=== PATIENT | female | born 1980 | race Caucasian/White ===

== ENCOUNTER → 2020-01-28 13:43 | Outpatient (CLI) | payer OTHER, SELFPAY ==
--- NOTE | ~2020-01-28 | MM_ITS ---
EXAMINATION: MM screening abdullahi BI w rafia HISTORY: Screening mammogram TECHNIQUE: Craniocaudal and mediolateral oblique 3-D tomosynthesis images were obtained and synthetic 2-D images were generated. CAD analysis was submitted and interpreted. COMPARISON: Comparison to multiple prior studies sequentially, with oldest reviewed study dated 07/18. BREAST PARENCHYMAL COMPOSITION: There are scattered areas of fibroglandular density. FINDINGS: There are developing asymmetries bilaterally in the outer aspect of both breasts. There are no suspicious calcifications. IMPRESSION: 1. Developing bilateral breast asymmetries. 2. Additional mammographic views and possible breast ultrasound are recommended. BI-RADS Category 0: Incomplete: Needs additional imaging evaluation. Reviewed, dictated and finalized at location A. OR DEPARTMENT SUPERVISOR IMPRESSION: 1. Developing bilateral breast asymmetries. 2. Additional mammographic views and possible breast ultrasound are recommended . BI-RADS Category 0: Incomplete: Needs additional imaging evaluation.
== END ==
PROVIDERS: Visit Provider Student in an Organized Health Care Education/Training Program
DX: Z12.31 Encounter for screening mammogram for malignant neoplasm of breast (principal); R92.8 Other abnormal and inconclusive findings on diagnostic imaging of breast
CPT/HCPCS: 77063; 77067

== ENCOUNTER 2020-02-14 09:06 | Outpatient (CLI) | payer OTHER, SELFPAY ==
--- NOTE | ~2020-02-14 | MMUS_ITS ---
EXAMINATION: MM diagnostic mammo BI, US breast BI limited HISTORY: Follow-up bilateral breast asymmetries TECHNIQUE: Additional 3-D tomosynthesis images of the breasts were performed and synthetic 2-D images were generated. CAD analysis was submitted and interpreted. High resolution bilateral breast ultraso und was performed. COMPARISON: 07/18/2017 FINDINGS: MAMMOGRAPHIC FINDINGS: The breasts are heterogenously dense, which may obscure small masses. There is no mammographic eviden ce for malignancy in the left breast. There is a microlobulated mass in the upper outer quadrant of t he right breast, middle third with poorly defined margins. ULTRASOUND: Bilateral breast ultrasound: There are multiple simple and complicated cysts of both breasts. In the right breast at 10:00, 5 cm f rom the nipple there is an oval circumscribed hypoechoic mass with central echogenicity measuring 12 x 5 x 11 mm. No internal vascularity or significant posterior features. IMPRESSION: 1. Irregular shaped mass upper outer quadrant of the right breast measuring 12 mm maximum dimension, likely corresponding to the mammographic finding. This is likely a benign intramammary lymph node. 2. Recommend 6 month follow-up diagnostic right mammogram and ultrasound BI-RADS category 3, probably benign findings. Reviewed, dictated and finalized at location A. IMPRESSION: 1. Irregular shaped mass upper outer quadrant of the right breast measuring 12 mm maximum dimension, likely corresponding to the mammographic finding. This is likely a benign intramammary lymph node. 2. Recommend 6 month follow-up diagnostic right mammogram and ultrasound BI-RADS category 3, probably benign findings.
== END 2020-02-14 09:07 ==
PROVIDERS: Visit Provider Obstetrics & Gynecology
DX: R92.8 Other abnormal and inconclusive findings on diagnostic imaging of breast (principal)
CPT/HCPCS: 76642; 77066

== ENCOUNTER 2021-02-16 08:13 | Emergency (ER) | payer OTHER, SELFPAY ==
--- NOTE | 2021-02-16 08:21 | ED.UPPEXIN ---
HPI - Extremity Injury (Upper) General Chief Complaint: Extremity Injury, Upper Stated Complaint: right thumb injury Time Seen by Provider: 02/16/21 08:21 Source: patient and RN notes reviewed History of Present Illness HPI narrative: Patient is a 40-year-old female with right thumb injury. 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 Patient states that about 2 and half weeks ago her index finger and right time were numb on the tips and therefore she was unsure that she was hitting the right thumb. Patient states that her index finger is now fully resolved of the numbness however she does still have some numbness at the tip of the right thumb. Patient is right-hand dominant. No other acute complaints. No acute distress noted. Patient aware of the plan of care. Some parts of this dictation were generated by voice recognition software and may contain typographical and/or grammatical inaccuracies. Related Data Home Medications Medication Instructions Recorded Confirmed fluticasone propionate 2 spray INTRANASAL DAILY 02/16/21 02/16/21 norethindrone-e.estradiol-iron 1 tablet PO DAILY 02/16/21 02/16/21 [Blisovi 24 Fe] Allergies Allergy/AdvReac Type Severity Reaction Status Date / Time amoxicillin Allergy Rash Verified 02/16/21 08:34 erythromycin base Allergy Rash Verified 02/16/21 08:34 Review of Systems Review of Systems: Narrative: CONSTITUTIONAL: Denies fever, chills, or sweats. EYES: Denies visual changes, redness, or discharge. ENT: Denies rhinorrhea, congestion, sore throat, or otalgia. CARDIOVASCULAR: Denies chest pain, palpitations, or edema. RESPIRATORY: Denies cough or dyspnea. GASTROINTESTINAL: Denies abdominal pain, nausea, vomiting, or diarrhea. GENITOURINARY: Denies dysuria or hematuria. SKIN: Denies rash or itching. MUSCULOSKELETAL: Reports of right thumb injury NEUROLOGIC: Denies headache, numbness, or weakness. All other systems reviewed are negative, except as documented in HPI. PMFSH Comments At the time of my signature, I reviewed and agree with the nursing past medical, surgical, social, and family history. There is no relevant family history pertinent to the patient complaint. Exam Narrative: Exam Narrative: GENERAL: This is a well-nourished, well-developed patient, in no apparent distress. HEAD: normocephalic, atraumatic. EYES: PERRL. Sclera clear/white. Vision is grossly intact. EARS: External ears normal NOSE: External nose normal with no obvious nasal discharge, nares without redness, no rhinorrhea. THROAT: Mucous membranes moist NECK: Neck supple SKIN: See extremities. Warm, intact with no suspicious lesions or rash, good texture and turgor. NEURO: awake, alert, and oriented to person, place and time. There were no obvious focal neurologic abnormalities. EXTREMITIES: Very mild ecchymosis and 1 x 1 cm irregular blood blister noted to the ulnar aspect of the right thumb with mild tenderness. Positive strong right radial pulse with capillary refill less than 2 seconds. No obvious deformity of right upper extremity. Range of motion within normal limits. Course Vital Signs Vital signs: Vital Signs Temperature 98.2 F 02/16/21 08:27 Pulse Rate 98 02/16/21 08:27 Respiratory Rate 14 02/16/21 08:27 Blood Pressure 167/97 H 02/16/21 08:27 Pulse Oximetry 100 02/16/21 08:27 Temperature 98.2 F 02/16/21 08:27 Pulse Rate 98 02/16/21 08:27 Respiratory Rate 14 02/16/21 08:27 Blood Pressure 167/97 H 02/16/21 08:27 Pulse Oximetry 100 02/16/21 08:27 Reviewed-patient is informed that they may have pre-hypertension or hypertension based on a blood pressure reading in the department. I recommend the patient call the primary care provider listed on their discharge instructions or a physician of their choice this week to arrange follow-up for further evaluation of possible pre-hypertension or hypertension. Procedures O
[2021-02-16 08:27] VITALS: BP 167/97; PULSE 98; RESP 14; TEMP 36.8; O2SAT 100
== END 2021-02-16 08:47 | disposition home or self-care (01) ==
PROVIDERS: Emergency Provider Nurse Practitioner Family
DX: S60.321A Blister (nonthermal) of right thumb, initial encounter (principal); X58.XXXA Exposure to other specified factors, initial encounter
CPT/HCPCS: 29130; 99212; G0463

== ENCOUNTER → 2021-02-19 13:11 | Outpatient (CLI) | payer OTHER, SELFPAY ==
--- NOTE | ~2021-02-19 | MMUS_ITS ---
EXAMINATION: MM diagnostic abdullahi BI w rafia, US breast RT limited HISTORY: Follow-up for probably benign right breast mass TECHNIQUE: Craniocaudal, mediolateral, and mediolateral oblique 3-D tomosynthesis images of the breas ts were performed and synthetic 2-D images were generated. CAD analysis was submitted and interpreted . High resolution limited right breast ultrasound was performed. COMPARISON: 02/14/2020, 01/28/2020, 02/04/2018, 07/18/2017 BREAST PARENCHYMAL COMPOSITION: The breasts are heterogeneously dense, which may obscure small masses . FINDINGS: MAMMOGRAPHIC FINDINGS: Right breast: There is a stable 8mm by 5 mm oval, obscured, equal density mass in the middle third of the outer breast at the 9:00 location 5 cm from the nipple. There has been no suspicious change. No suspicious calcification or architectural distortion are identified. Left breast: There is no evidence of suspicious mass, calcification, or architectural distortion to suggest malignancy. There has been no suspicious interval change. ULTRASOUND: There is a stable 11 mm x 4 mm oval, circumscribed, parallel, hypoechoic mass with no posterior featu res or internal vascularity at the 10:00 location 4 cm from the nipple. The mass has not significantl y changed since the 2018 comparison. Multiple additional cysts are noted in the upper outer quadrant of the breast. IMPRESSION: 1. No mammographic or sonographic evidence of malignancy. 2. Recommend routine screening mammography in one year. BI-RADS Category 2: Benign finding(s). Reviewed, dictated and finalized at location A. IMPRESSION: 1. No mammographic or sonographic evidence of malignancy. 2. Recommend routine screening mammography in one year. BI-RADS Category 2: Benign finding(s).
== END ==
PROVIDERS: Visit Provider Student in an Organized Health Care Education/Training Program
DX: Z12.31 Encounter for screening mammogram for malignant neoplasm of breast (principal); R92.8 Other abnormal and inconclusive findings on diagnostic imaging of breast
CPT/HCPCS: 76642; 77062; 77066; G0279

== ENCOUNTER → 2022-04-25 16:10 | Outpatient (CLI) | payer BC, SELFPAY ==
--- NOTE | ~2022-04-25 | MM_ITS ---
EXAMINATION: MM screening abdullahi BI w rafia HISTORY: Screening mammogram TECHNIQUE: Craniocaudal and mediolateral oblique 3-D tomosynthesis images were obtained and synthetic 2-D images were generated. Bilateral rotated lateral CC views. CAD analysis was submitted and interp reted. COMPARISON: 02/19/2021 diagnostic bilateral mammogram and limited right breast ultrasound examination 02/14/2020 bilateral diagnostic mammography and bilateral Limited breast ultrasound 01/28/2020 bilateral screening mammogram BREAST PARENCHYMAL COMPOSITION: The breasts are heterogeneously dense, which may obscure small masses . FINDINGS: There is no evidence of suspicious mass, calcification, or architectural distortion to sugg est malignancy in either breast. There has been no suspicious interval change. IMPRESSION: 1. No mammographic evidence of malignancy. 2. Recommend routine screening mammography in one year. BI-RADS Category 1: Negative Reviewed, dictated and finalized at location A.
== END ==
PROVIDERS: PCP Internal Medicine; Visit Provider Student in an Organized Health Care Education/Training Program
DX: Z12.31 Encounter for screening mammogram for malignant neoplasm of breast (principal)
CPT/HCPCS: 77063; 77067

== ENCOUNTER → 2023-08-19 16:02 | Outpatient (CLI) | payer BC, SELFPAY ==
--- NOTE | ~2023-08-19 | MM_ITS ---
EXAMINATION: MM screening abdullahi BI w rafia HISTORY: Screening TECHNIQUE: Craniocaudal and mediolateral oblique 3-D tomosynthesis images were obtained and synthetic 2-D images were generated. CAD analysis was submitted and interpreted. COMPARISON: Comparison to multiple prior studies sequentially, with oldest reviewed study dated 05/2017. BREAST PARENCHYMAL COMPOSITION: The breasts are heterogeneously dense, which may obscure small masses FINDINGS: There is no evidence of suspicious mass, calcification, or architectural distortion to sugg est malignancy in either breast. There has been no suspicious interval change. IMPRESSION: 1. No mammographic evidence of malignancy. 2. Recommend routine screening mammography in one year. BI-RADS Category 1: Negative Reviewed, dictated and finalized at location A.
== END ==
PROVIDERS: PCP Internal Medicine; Visit Provider Obstetrics & Gynecology
DX: Z12.31 Encounter for screening mammogram for malignant neoplasm of breast (principal)
CPT/HCPCS: 77063; 77067

== ENCOUNTER → 2024-01-02 08:45 | Outpatient (CLI) | payer BC, SELFPAY ==
--- NOTE | ~2024-01-02 | US_ITS ---
Pelvic ultrasound. Clinical History: Pelvic pain Technique: Realtime transabdominal and transvaginal scanning of the pelvis was performed. Color flow Doppler and Doppler spectral analysis were performed. Findings: The uterus is anteverted. The endometrial stripe has a thickness of 5 mm. Possible ill-def ined posterior wall intramural fibroid measures 2.3 cm in diameter. Additional probable ill-defined l eft-sided intramural fibroid measures 2.1 cm in diameter. The right ovary measures 2.8 x 1.7 x 2.2 cm. No significant right ovarian or adnexal mass is seen. The left ovary is not visualized. No significant left ovarian or adnexal mass is seen. There is no evidence of free fluid in the cul de sac. Impression: Ill-defined uterine fibroids, as detailed above. Reviewed, dictated and finalized at location . ING ROLL OPERATOR HEAVY DUTY Impression: Ill-defined uterine fibroids, as detailed above.
== END ==
PROVIDERS: PCP Internal Medicine; Visit Provider Obstetrics & Gynecology
DX: D25.1 Intramural leiomyoma of uterus (principal)
CPT/HCPCS: 76830; 76856

== ENCOUNTER 2024-03-17 16:19 | Outpatient (CLI) | payer BC, SELFPAY ==
[2024-03-17 16:45] LABS: Basophils Percent Auto 0.3 % (0.2-1.2); Eosinophils Absolute Auto 0.1 K/mm3 (0-0.3); Hematocrit 44.3 % (37.0-47.0); Immature Granulocyte Absolute 0.02 K/mm3 (0.00-0.031); Immature Granulocyte Percent A 0.3 % (0-0.5); Lymphocytes Absolute Auto 2.91 K/mm3 (0.9-3.2); Lymphocytes Percent Auto 41.3 % (18.3-44.2); Mean Corpuscular HGB Conc 33.9 g/dl (32-36); Mean Corpuscular Hemoglobin 30.1 pg (26-34); Mean Platelet Volume 10.4 fl (7.4-10.4); Monocytes Absolute Auto 0.6 K/mm3 (0.1-0.6); Monocytes Percent Auto 8.8 % (2.6-8.5); Neutrophils Absolute Auto 3.3 K/mm3 (1.3-6.7); Neutrophils Percent Auto 47.3 % (45.5-73.1); Platelet Count Result 270 k/mm3 (150-375); Red Blood Count 4.98 M/mm3 (4.2-5.4); Red Cell Distribution Width 12.5 % (11.5-14.5)
== END 2024-03-17 16:20 | disposition home or self-care (01) ==
LOC: ANHLAB 16:20
PROVIDERS: PCP Internal Medicine; Visit Provider Obstetrics & Gynecology
DX: R10.2 Pelvic and perineal pain (principal)
CPT/HCPCS: 36415; 85025; 86850; 86900; 86901

== ENCOUNTER 2024-03-26 00:14 | Day surgery (SDC) | payer BC, SELFPAY ==
[2024-03-16 15:40] VITALS: BMI 34.0
--- NOTE | 2024-03-16 16:13 | PC.NURSE ---
Report to the Outpatient Waiting Room, entrance under the green pavilion located off [facility], at 0600 on 03-26-24. Planned Procedure Time: 0730. Time changes happen often and if your time is changed the preop area will call you the afternoon before. - You and your visitor will be asked to self-screen and do not enter if you have any COVID symptoms. - A mask is optional within the hospital at this time. Patients may have clear liquids (water, carbonated beverages, clear teas, apple juice) until 3 hours prior to surgery with a maximum of 20 ounces. 0430 - No food from midnight until time of surgery - Infants may have breast milk until 4 hours before surgery, formula 6 hours prior to surgery. - Children will be allowed to drink immediately following surgery. If applicable, please bring a bottle or sippy cup to assist with drinking. Juice, water, soda, and popsicles are readily available. For infants on formula, please bring formula the day of surgery. Pacifiers are allowed. Take the following medications with a SIP of water the morning of surgery: control DO NOT STOP ANY OF YOUR OTHER PRESCRIPTION MEDICATIONS PRIOR TO SURGERY ?EXCEPT THE FOLLOWING Medications to discontinue per physician: phentermine and topiramate Date to take last dose: Per Dr. Andreas Townsend Please no make-up, nail south korean, hairspray, perfume, deodorant, or body powder the day of surgery. No jewelry (including any body piercings) or valuables the day of surgery, leave them at home. Please take a shower or bath the night before, or the morning of, surgery with an antibacterial soap. Wear comfortable, loose fitting clothing. Children are encouraged to wear pajamas. - Jewelry must be removed prior to entering the operating room. Rings and piercings that are not removed may be cut off. - The hospital will not accept responsibility for valuables. - Please leave all valuables, including medications, at home the day of surgery. If you are going home after surgery, a licensed frontload driver must drive you home. - NO public transportation without another adult if you receive anesthesia. - We recommend that an adult stay with you for 24 hours following discharge. - We also recommend that you do not drive, make important decision, drink alcoholic beverages, or take any drugs that were not prescribed by your health care provider for at least 24 hours after your discharge time. For Pediatric surgeries, we recommend two adults accompany the child home. Follow any additional instructions given to you from your surgeon. If you or anyone in your household have experienced Covid symptoms in the past week, please notify your surgeon or the nurse liaison at the phone number below for possible testing. Telephone instructions given to Maria Teresa Carlos and asked if any additional questions and then verbalized understanding. Patient advised to call surgeon office or pre surgery nurse liaison [phone] if any additional questions.
--- NOTE | 2024-03-24 07:32 | P.HP_ITS ---
H&P: HPI History of Present Illness Date/Time: 03/24/24 07:32 Chief Complaint: Pelvic pain/a/enlarged uterus with fibroids Narrative: We 3-year-old 2 para 2 admitted for hysterectomy bilateral salpingectomy secondary to uterine fibroids pelvic pain and recurrent abnormal Pap. Risks reviewed exclusive, aspiration, bleeding, transfusion, perforation injury to bowel, bladder, ureters, or other internal organs need for laparotomy. She was given the ACOG handout entitled hysterectomy as well as the Stormy handout. She had all questions answered. She has to proceed. She was told to stop her phentermine and Topamax 1 week prior to surgery [facility] Social History Social History Smoking status: Never smoker Second hand tobacco smoke exposure: No Alcohol intake: current Drinks per week: 3 Substance use: never Substance use type: does not use Living arrangements: with family Spiritual care concerns: No Meds Home Medications and Allergies Home Medications Medication Instructions Recorded Confirmed Type fluticasone propionate 50 2 spray intranasal DAILY 02/16/21 03/16/24 History mcg/actuation nasal spray,suspension norethindrone 1 mg-ethinyl 1 tablet PO DAILY 02/16/21 03/16/24 History estradiol 20 mcg (24)-iron 75 mg (4) tablet (Blisovi 24 Fe) phentermine 15 mg capsule 15 mg PO DAILY 03/16/24 03/16/24 History topiramate 25 mg tablet 25 mg PO DAILY 03/16/24 03/16/24 History Allergies Allergy/AdvReac Type Severity Reaction Status Date / Time amoxicillin Allergy Mild Rash Verified 03/16/24 15:19 ciprofloxacin Allergy Mild Rash Verified 03/16/24 15:34 doxycycline Allergy Mild Rash Verified 03/16/24 15:32 erythromycin base Allergy Mild Rash Verified 03/16/24 15:19 nitrofurantoin Allergy Mild Rash Verified 03/16/24 15:33 [From Macrobid] Exam Const: General: cooperative, healthy appearing, comfortable and overweight Orientation/consciousness: oriented to person, oriented to place and oriented to time Resp: Effort & Inspection: normal respiratory effort Cardio: Rate: regular rate Rhythm: regular rhythm Heart sounds: S1 normal heart sound present and S2 normal heart sound present GI: Inspection: normal to inspection Auscultation: normal bowel sounds : External Female Exam: normal external appearance Speculum Exam - Vagina: normal appearance of the vagina Speculum Exam - Cervix: normal appearance of the cervix Bimanual exam- vagina & uterus: enlarged and Uterine tenderness Bimanual Exam- Adnexa, other: normal adnexae Assessment and Plan Assessment and plan (1) Pelvic pain: Code(s): R10.2 - Pelvic and perineal pain Status: Acute (2) Enlarged uterus: Code(s): N85.2 - Hypertrophy of uterus Status: Acute (3) Abnormal Pap smear of cervix: Code(s): R87.619 - Unspecified abnormal cytological findings in specimens from cervix uteri Status: Acute Plan Proceed with robotic total vaginal hysterectomy and bilateral salpingectomy
[2024-03-26] VITALS (15 sets, daily range): BP systolic 117–176; BP diastolic 70–103; PULSE 59–89; RESP 10–20; TEMP 36.4–37.2; O2SAT 94–100; BMI 34.7
--- NOTE | 2024-03-26 06:23 | WPDHPUPDATE1 ---
History and Physical Update Update Date/Time: 03/26/24 06:23 History and Physical has been reviewed, including an updated exam of the patient. There are NO changes in the patient's condition. Risks, benefits, and alternatives have been discussed and questions answered. Patient agrees to proceed with procedure.
[2024-03-26] MEDS: LACTATED RINGERS 1,000 ML 30 ML IV CONT (06:40)
[2024-03-26] MEDS: ACETAMINOPHEN 500 MG TABLET 1000 MG PO (06:57)
[2024-03-26] MEDS: KETOROLAC 15 MG/ML VIAL (*BKC) IV PUSH (06:57)
--- NOTE | 2024-03-26 07:13 | WPDANESEPPF ---
Anes - Initial Pre Proc Eval Procedure: Operation Date: 03/26/24 07:30 Proposed Procedures p Robotic Assisted Total Vaginal Hysterectomy with Bilateral Salpingectomy - Lucas Townsend MD Date/Time: 03/26/24 07:13 Surgeon: Lucas Townsend MD Pre Op Diagnosis: Pelvic Pain, Abnormal Pap, Uterine Fibroids Patient Data Age: 43 Gender: F Height: 1.68 m Weight: 97.6 kg Last Vital Signs Temp 97.6 F 03/26/24 06:10 Pulse 89 03/26/24 06:10 Resp 16 03/26/24 06:10 BP 167/89 H 03/26/24 07:12 Pulse Ox 99 03/26/24 06:10 O2 Del Method Room Air 03/26/24 06:10 Allergies Allergy/AdvReac Type Severity Reaction Status Date / Time amoxicillin Allergy Mild Rash Verified 03/26/24 07:07 ciprofloxacin Allergy Mild Rash Verified 03/26/24 07:07 doxycycline Allergy Mild Rash Verified 03/26/24 07:07 erythromycin base Allergy Mild Rash Verified 03/26/24 07:07 nitrofurantoin Allergy Mild Rash Verified 03/26/24 07:07 [From Macrobid] Home Medications Medication Instructions Recorded Confirmed Type fluticasone propionate 50 2 spray intranasal DAILY 02/16/21 03/16/24 History mcg/actuation nasal spray,suspension norethindrone 1 mg-ethinyl 1 tablet PO DAILY 02/16/21 03/26/24 History estradiol 20 mcg (24)-iron 75 mg (4) tablet (Blisovi 24 Fe) phentermine 15 mg capsule 15 mg PO DAILY 03/16/24 03/26/24 History topiramate 25 mg tablet 25 mg PO DAILY 03/16/24 03/26/24 History hydrocodone 5 mg-acetaminophen 325 1 tablet PO Q4H PRN pain #30 tabs 03/26/24 Rx mg tablet Patient hx anesthesia problems: none Family hx anesthesia problems: none Results Review: All pre-operative results and documents have been reviewed as part of the pre-operative evaluation. [facility] Social History Social History Smoking status: Never smoker Second hand tobacco smoke exposure: No Alcohol intake: current Drinks per week: 3 Substance use: never Substance use type: does not use Living arrangements: with family Spiritual care concerns: No Anes - Eval Final PreProcedure Day of Procedure 03/26/24 07:13 Patient weight: normal Heart: regular rate and rhythm Lungs: clear to auscultation Airway: Mallampati scale class II Neurological: alert and oriented Last oral intake: >/= 8 hours ASA classification: II Emergent: no Anesthetic plan: proceed Anesthesia type and monitoring: general ETT and standard monitoring Results Review: All pre-operative results and documents have been reviewed as part of the pre-operative evaluation. Informed Consent: The patient's anesthetic plan and its attendant risks and benefits were discussed with the patient/family/POA. Questions were solicited and answers provided to the satisfaction of the patient/family/POA.
[2024-03-26] MEDS: ceFAZolin 2 GM/D5W 50 ML 2 GM/50 ML BAG IVPB (07:32)
--- NOTE | 2024-03-26 08:30 | P.OP_ITS ---
Procedure Note - Detailed Date of Procedure 03/26/24 Pre-op Diagnosis Pelvic Pain, Abnormal Pap, Uterine Fibroids Post-op Diagnosis Same Procedure Performed Total vaginal hysterectomy bilateral salpingectomy Surgeon Lucas Townsend MD Anesthesia General Indications 43-year-old female with symptomatic uterine fibroids Findings large of fibroid uterus. Normal-appearing tubes bilaterally. The small simple ovarian cyst on the Description of Procedure patient was prepped draped in the normal sterile fashion placed in the dorsal lithotomy position. Under excellent general trach anesthesia weighted speculum placed posterior fornix vagina. Anterior lip of the cervix grasped with a single-tooth. Uterus sounded to 10cm. Serial dilatation with fragmented dilators performed followed passes the number 8 PEYTON and the 3. 0.5 cold cup. Next the 16 Malaysian catheter was placed in the bladder. The weighted speculum and single-tooth were removed and the gloves were changed. Supraumbilical incision made Veress needle passed the abdomen. Abdomen filled with CO2 gas [id number]. The 8mm trocar advanced in the abdomen. Downside visualized no injury seen. Patient placed in Trendelenburg it 20? and right left lateral quadrant incision made. 8Mm trocars advanced under direct visualization assuring no injury. An 8mm trocar advanced in the right upper quadrant under direct visualization assuring no injury. The robot was docked. Attention was turned to the psychotherapist counselor. The left round ligament was grasped, burned, cut. Anterior bladder flap was formed by sharply dissecting the peritoneum and reflecting the bladder caudally away from the cervix uterus the opposite round ligament which was clamped, burned, cut. Next the fallopian tube was sharply dissected away from the ovarian complex and left attached to its uterine origin. In similar fashion, the right right fallopian tube was grasped and sharply dissected away from the ovarian complex left attached to the uterine origin. The left utero-ovarian ligament was skeletonized clamped burning cutting and bringing this level previously round ligament for preservation of the left ovary. In similar fashion preserving the right ovary, the utero- ovarian ligament was clamped, burned, cut brought to level previously cut round ligament. The cardinal broad ligaments on the left were skeletonized sharply dissecting the clamping burning cutting and hugging the cervix uterus until the large tortuous blood vessels could be seen left. These were individually clamped, burned, cut. Hemostasis was assured. The cardinal broad ligaments on the right were similarly skeletonized clamping burning cutting and hugging the cervix uterus until the uterine vessels could be seen right. These were individually clamped, burned,. Hemostasis was assured blanching the uterus was noted. Colpotomy incision was made in the cervix uterus tubes removed through the vagina. Vagina was then closed with continuous running 0V lock from lateral edge to lateral edge back to the midline. Irrigation undertaken until clear. The robot was undocked. The gas removed from the abdomen. The trocars removed the incisions closed with 4 Monocryl and glue. Patient was awakened went to recovery in satisfactory condition. All sponge, needle, instrument counts were correct. There were no immediate complications noted Estimated Blood Loss 25 Drains No Packing No Pathology Yes Complications No immediate complications Condition Stable Disposition PACU
--- NOTE | 2024-03-26 08:34 | P.DS_ITS ---
DS: Admitting Diagnosis Discharge Date 03/27/2024 Admitting Diagnosis symptomatic uterine fibroids /pelvic pain /abnormal Pap DS: Discharge Diagnosis Discharge Diagnosis (1) Abnormal Pap smear of cervix: Code(s): R87.619 - Unspecified abnormal cytological findings in specimens from cervix uteri Status: Acute (2) Enlarged uterus: Code(s): N85.2 - Hypertrophy of uterus Status: Acute (3) Pelvic pain: Code(s): R10.2 - Pelvic and perineal pain Status: Acute DS: Summary Hospital Course Reason for hospitalization: patient was admitted on 03/26/2024 for robotic total vaginal hysterectomy and bilateral salpingectomy. Hospital Course: Patient's hospital course was unremarkable. She remained afebrile. She was up, voiding without difficulty, eating regular diet, ambulating, generally without complaints. Routine discharge instructions were reviewed. She was to follow up in 2 weeks time Time Spent with Patient Time attestation: Total time spent providing and/or coordinating discharge services: Exam Const: General: cooperative, healthy appearing and comfortable Nutritional Appearance: average body habitus Orientation/consciousness: oriented to person, oriented to place and oriented to time HENMT: Head: normal to inspection Resp: Effort & Inspection: normal respiratory effort Cardio: Rate: regular rate Rhythm: regular rhythm Heart sounds: S1 normal heart sound present and S2 normal heart sound present GI: Inspection: normal to inspection and incision ( wounds are clean dry and intact) : External Female Exam: normal external appearance DS: Data Data Completed and Pending Pending studies at discharge: Pending at discharge 03/26/24 08:05 Surgical [PTH] Routine Discharge Plan Discharge Patient Disposition: Home, Self-Care Stand Alone Forms: General Discharge Instructions Follow-up/Referrals: Lucas Garcia MD [Physician] - Discharge Medications: New hydrocodone-acetaminophen 5-325 mg tablet 1 tablet PO Q4H PRN (Reason: pain) Qty: 30 0RF No Action fluticasone propionate 50 mcg/actuation [place],Suspension 2 spray INTRANASAL DAILY [place] 24 Fe 1 mg-20 mcg (24)/75 mg (4) Tablet 1 tablet PO DAILY topiramate 25 mg tablet 25 mg PO DAILY Patient Comments: patient takes for weight loss phentermine 15 mg capsule 15 mg PO DAILY Patient Comments: patient takes for weight loss
[2024-03-26] MEDS: hydrALAZINE HCL 20 MG/ML VIAL 5 MG IV PUSH (09:30)
[2024-03-26] MEDS: fentaNYL CITRATE INJ (*CRX) 100 MCG/2 ML VIAL 25 MCG IV PUSH (09:50)
[2024-03-26] MEDS: ONDANSETRON INJ 4 MG/2 ML VIAL IV PUSH (09:55)
--- NOTE | 2024-03-26 10:10 | PC.NURSE ---
This patient, Maria Teresa Carlos, was received from PACU via bed on 03/26/24 at 1010. Patient/family oriented to unit policies and routines.
[2024-03-26] MEDS: DEXTROSE 5%/LACTATED RINGERS 1,000 ML 125 ML IV CONT (10:40)
[2024-03-26] MEDS: PROMETHAZINE HCL 25 MG/ML AMPUL 12.5 MG IV PUSH (10:40)
[2024-03-26] MEDS: HYDROcodone/acetaminophen (*CRX) 5-325 MG TABLET 1 TAB PO ×2 (12:20→19:52)
[2024-03-26] MEDS: SIMETHICONE 80 MG TAB.CHEW PO ×2 (13:39→15:59)
[2024-03-26] MEDS: KETOROLAC 30 MG/ML VIAL (*BKC) IV PUSH (13:39)
[2024-03-26] MEDS: HYDROcodone/acetaminophen (*CRX) 10-325 MG TABLET 1 TAB PO ×2 (15:58→22:22)
[2024-03-26] MEDS: DOCUSATE SODIUM 100 MG CAPSULE PO (15:59)
[2024-03-26] MEDS: IBUPROFEN 600 MG TABLET PO (19:52)
[2024-03-27 05:22] VITALS: BP 126/78; PULSE 63; RESP 12; TEMP 36.9; O2SAT 96
[2024-03-27 05:58] LABS: Basophils Percent Auto 0.1 % (0.2-1.2); Hemoglobin 14.3 g/dL (12.0-15.0); Immature Granulocyte Absolute 0.17 K/mm3 (0.00-0.031); Immature Granulocyte Percent A 0.9 % (0-0.5); Lymphocytes Absolute Auto 1.99 K/mm3 (0.9-3.2); Lymphocytes Percent Auto 10.1 % (18.3-44.2); Mean Corpuscular HGB Conc 33.3 g/dl (32-36); Mean Corpuscular Volume 90.3 fl (80-100); Mean Platelet Volume 10.5 fl (7.4-10.4); Monocytes Absolute Auto 1.3 K/mm3 (0.1-0.6); Monocytes Percent Auto 6.6 % (2.6-8.5); Neutrophils Absolute Auto 16.2 K/mm3 (1.3-6.7); Neutrophils Percent Auto 82.3 % (45.5-73.1); Platelet Count Result 295 k/mm3 (150-375); Red Blood Count 4.76 M/mm3 (4.2-5.4); Red Cell Distribution Width 12.8 % (11.5-14.5); White Blood Count 19.6 K/mm3 (4.5-10.0)
[2024-03-27 07:30] VITALS: BP 149/85; PULSE 62; RESP 16; TEMP 36.8; O2SAT 99
--- NOTE | 2024-03-27 07:41 | PM.GYNPNOP ---
FINANCIAL INVESTMENT ADVISER - A/P Postoperative Procedures: Procedures Operation Date: 03/26/24 07:30 Actual Procedure Side Surgeon p Robotic Assisted Total Vaginal Hysterectomy with Bilateral Salpingectomy Bilateral Lucas Townsend MD Postoperative day: 1 Postoperative status: doing well Postoperative plan: routine post-op care, see orders, ambulate, advance diet, voiding trials and discharge Time Spent With Patient Time: Total time spent is greater than 50% in coordination of care (as documented) at patient's floor/unit and/or counseling patient: Time with patient: less than 15 minutes FINANCIAL INVESTMENT ADVISER- PN:Subj Post-Op Subjective Date/time seen: 03/27/24 07:41 Subjective: patient reports feeling better, patient has no complaints, patient desires discharge, pain is well controlled and patient is tolerating oral intake Exam Const: General: cooperative, healthy appearing and comfortable Orientation/consciousness: oriented to person, oriented to place and oriented to time HENMT: Head: normal to inspection Resp: Effort & Inspection: normal respiratory effort Cardio: Rate: regular rate Rhythm: regular rhythm Heart sounds: S1 normal heart sound present and S2 normal heart sound present GI: Inspection: normal to inspection and incision (cdi) FINANCIAL INVESTMENT ADVISER - PN: Obj Data Vital Signs Vital Signs: Vital Signs - 24 hr 03/26/24 08:42 03/26/24 08:55 03/26/24 09:10 Temperature 97.8 F Pulse Rate 80 76 70 Respiratory Rate 10 L 16 20 Blood Pressure 145/93 H 176/103 H 165/87 H Pulse Oximetry 100 100 100 Oxygen Delivery Simple Face Mask Simple Face Mask Room Air Oxygen Flow Rate 8 8 03/26/24 09:25 03/26/24 09:40 03/26/24 09:55 Temperature Pulse Rate 64 66 59 L Respiratory Rate 14 12 16 Blood Pressure 173/94 H 154/82 H 152/84 H Pulse Oximetry 97 99 94 Oxygen Delivery Room Air Room Air Room Air Oxygen Flow Rate 03/26/24 10:24 03/26/24 14:10 03/26/24 15:59 Temperature 98.1 F 97.7 F 98.7 F Pulse Rate 61 65 61 Respiratory Rate 16 18 18 Blood Pressure 137/77 149/82 H 154/100 H Pulse Oximetry 97 98 100 Oxygen Delivery Oxygen Flow Rate 03/26/24 16:00 03/26/24 17:20 03/26/24 20:06 Temperature Pulse Rate 80 Respiratory Rate 18 Blood Pressure 138/103 H 148/91 H Pulse Oximetry 96 Oxygen Delivery Room Air Oxygen Flow Rate 03/26/24 20:06 03/26/24 23:52 03/26/24 23:52 Temperature 98.9 F 98.5 F Pulse Rate 80 60 60 Respiratory Rate 16 12 16 Blood Pressure 126/84 117/70 Pulse Oximetry 96 95 95 Oxygen Delivery Room Air Oxygen Flow Rate 03/27/24 05:22 03/27/24 05:22 Temperature 98.5 F Pulse Rate 63 63 Respiratory Rate 12 12 Blood Pressure 126/78 Pulse Oximetry 96 96 Oxygen Delivery Room Air Oxygen Flow Rate Intake/Output Intake/Output: Intake & Output 03/24/24 03/25/24 03/26/24 03/27/24 23:59 23:59 23:59 23:59 Intake Total 1150 Output Total 2710 200 Balance -1560 -200 Meds/Results Medications: Active Medications Generic Name Dose Route Start Last Admin Trade Name Freq PRN Reason Stop Dose Admin Hydrocodone Bitart/Acetaminophen 1 tab 03/26/24 10:03 03/26/24 19:52 Hydrocodone/Acetaminophen (*Crx) 5-325 Mg Tablet PO 1 tab Q3H PRN Administration Pain Rated 5 or Less Hydrocodone Bitart/Acetaminophen 1 tab 03/26/24 10:03 03/26/24 22:22 Hydrocodone/Acetaminophen (*Crx) 10-325 Mg Tablet PO 1 tab Q3H PRN Administration Pain Rated 6 or Greater Docusate Sodium 100 mg 03/26/24 17:00 03/26/24 15:59 Docusate Sodium 100 Mg Capsule PO 100 mg BID GISEL Administration Enoxaparin Sodium 40 mg 03/27/24 07:00 Enoxaparin 40 Mg/0.4 Ml Syringe SUB-Q DAILY GISEL Dextrose/Lactated Ringer's 1,000 mls @ 125 mls/hr 03/26/24 10:03 03/26/24 10:40 Dextrose 5%/Lactated Ringers IV CONT 125 mls/hr .Q8H GISEL Administration Ibuprofen 600 mg 03/26/24 10:03 03/26/24 19:52 Ibuprofen 600 Mg Tablet PO 600 mg Q6H PRN Administrati
[2024-03-27] MEDS: SIMETHICONE 80 MG TAB.CHEW PO (07:43)
[2024-03-27] MEDS: DOCUSATE SODIUM 100 MG CAPSULE PO (07:43)
[2024-03-27] MEDS: ENOXAPARIN 40 MG/0.4 ML SYRINGE SUB-Q (07:43)
[2024-03-27] MEDS: IBUPROFEN 600 MG TABLET PO (07:50)
[2024-03-27] MEDS: HYDROcodone/acetaminophen (*CRX) 5-325 MG TABLET 1 TAB PO (07:50)
== END 2024-03-27 10:05 | disposition home or self-care (01) ==
LOC: ANHSURGERY 06:25 → ANHOB2 10:05
PROVIDERS: PCP Internal Medicine; Visit Provider Obstetrics & Gynecology
PROC: (CPT 58262; principal; 2024-03-26 07:30)
DX: D25.1 Intramural leiomyoma of uterus (principal); D25.2 Subserosal leiomyoma of uterus; N87.9 Dysplasia of cervix uteri, unspecified; N88.8 Other specified noninflammatory disorders of cervix uteri; N83.8 Other noninflammatory disorders of ovary, fallopian tube and broad ligament; Z79.891 Long term (current) use of opiate analgesic
CPT/HCPCS: 58262; 36415; 85025; 88307; 99199; A9270; J0330; J0360; J0690; J1100; J1650; J1885; J2250; J2405; J2550; J2704; J3010; J7030; J7120; J7121

== ENCOUNTER 2024-08-20 15:40 | Outpatient (CLI) | payer BC, SELFPAY ==
--- NOTE | ~2024-08-20 | MM_ITS ---
EXAMINATION: MM screening abdullahi BI w rafia HISTORY: Screening mammogram TECHNIQUE: Craniocaudal and mediolateral oblique 3-D tomosynthesis images were obtained and synthetic 2-D images were generated. CAD analysis was submitted and interpreted. COMPARISON: 08/19/2023, 04/25/2022, 02/19/2021, 01/28/2020 BREAST PARENCHYMAL COMPOSITION:Dense: The breasts are heterogeneously dense, which may obscure small masses. FINDINGS: There is an asymmetry in the outer right breast on CC view, without definite MLO correlate. There is a probable 9 mm circumscribed mass at the posterior, upper left breast on MLO view, not wel l delineated on CC view. No suspicious masses or calcifications in either breast. IMPRESSION: Increased asymmetry at the outer right breast. Spot compression views, and possibly ultrasound, andrzej mmended for further evaluation. 9 mm mass at the posterior, upper left breast. Spot compression views and possibly ultrasound are rec ommended for further evaluation. BI-RADS Category 0: Incomplete: Needs additional imaging evaluation. Reviewed, dictated and finalized at location . IMPRESSION: Increased asymmetry at the outer right breast. Spot compression views, and pos sibly ultrasound, recommended for further evaluation. 9 mm mass at the posterior, upper left breast. Spot compression views and possi malgorzata ultrasound are recommended for further evaluation. BI-RADS Category 0: Incomplete: Needs additional imaging evaluation.
== END 2024-08-20 15:41 | disposition home or self-care (01) ==
PROVIDERS: PCP Obstetrics & Gynecology
DX: Z12.31 Encounter for screening mammogram for malignant neoplasm of breast (principal); R92.8 Other abnormal and inconclusive findings on diagnostic imaging of breast
CPT/HCPCS: 77063; 77067

== ENCOUNTER 2024-09-10 08:45 | Outpatient (CLI) | payer BC, SELFPAY ==
--- NOTE | ~2024-09-10 | MMUS_ITS ---
EXAMINATION: MM diagnostic abdullahi BI w rafia, US breast BI complete HISTORY: Bilateral breast asymmetries. TECHNIQUE: Additional 3-D tomosynthesis images of the breasts were performed and synthetic 2-D images were generated. CAD analysis was submitted and interpreted. High resolution bilateral complete breas t ultrasound was performed. COMPARISON: Comparison to multiple prior studies sequentially, with oldest reviewed study dated 01/28. BREAST PARENCHYMAL COMPOSITION: Dense: The breasts are heterogeneously dense, which may obscure small masses FINDINGS: MAMMOGRAPHIC FINDINGS: The focal asymmetry in the right breast laterally compresses with spot views. No discrete mass or arc hitectural distortion.There is a mass in the upper outer quadrant of the left breast which is obscure d by fibroglandular tissue. There are no suspicious calcifications or architectural distortion. ULTRASOUND: Complete bilateral breast ultrasound including all 4 quadrants in the subareolar locations: Right breast: At 9:00, 5 cm from the nipple there is an oval hypoechoic heterogeneous appearing mass measuring 7 x 7 x 4 mm without posterior features. There is internal vascularity. There is parallel o rientation. At 10:00, 5 cm from the nipple there is a slightly irregular oval hypoechoic mass measuri ng 8 x 7 x 4 mm with posterior acoustic enhancement and no internal vascularity. At 11:00, 3 cm from the nipple there is an irregular shaped hypoechoic mass measuring 10 x 5 x 7 mm without internal vasc ularity. There is posterior acoustic enhancement. Left breast: At 2:00, 6 cm from the nipple there is a bilobed 10 x 7 x 4 mm complicated cysts, likely benign. At 10:00, 4.5 cm from the nipple there is a 10 mm cyst. At 11:00, 3 cm from the nipple there is a 12 mm cyst. IMPRESSION: 1. Irregular shaped hypoechoic mass of the right breast 11:00, 3 cm from the nipple measuring up to 1 0 mm. Oval hypoechoic vascular 7 mm mass of the right breast at 9:00, 7 cm from the nipple. Ultrasoun d-guided biopsy of these masses recommended. 2. Additional mass of the right breast at 10:00, 5 cm from the nipple is likely benign. Six-month fol low-up ultrasound recommended. BI-RADS category 4, suspicious findings. Reviewed, dictated and finalized at location B. IMPRESSION: 1. Irregular shaped hypoechoic mass of the right breast 11:00, 3 cm from the ni pple measuring up to 10 mm. Oval hypoechoic vascular 7 mm mass of the right mary ann ast at 9:00, 7 cm from the nipple. Ultrasound-guided biopsy of these masses rec ommended. 2. Additional mass of the right breast at 10:00, 5 cm from the nipple is likely benign. Six-month follow-up ultrasound recommended. BI-RADS category 4, suspicious findings.
== END 2024-09-10 08:46 | disposition home or self-care (01) ==
LOC: MICIMG 08:46
PROVIDERS: Visit Provider Obstetrics & Gynecology
DX: R92.8 Other abnormal and inconclusive findings on diagnostic imaging of breast (principal)
CPT/HCPCS: 76641; 77062; 77066; G0279

== ENCOUNTER 2024-10-18 08:02 | Outpatient (CLI) | payer BC, SELFPAY ==
--- NOTE | ~2024-10-18 | MMUS_ITS ---
EXAMINATION: MM post biopsy diagnostic RT, US breast bx add lesion RT, US breast biopsy RT w image DATE: 10/18/2024 10:05 (accession [id number]), 10/18/2024 10:44 (accession [id number]), 10/18 10:46 (accession [id number]) INDICATION: Abnormal mammogram and ultrasound and a 44-year-old patient with significant family histo ry of breast cancer TECHNIQUE: The procedure including the risks, benefits, and alternatives was discussed with the patie nt. Risks discussed included bleeding, infection, insufficient tissue sampling. The patient understood the risks and agreed to proceed. The skin overlying the right breast was prepped and draped in usual sterile fashion. Anesthetic was administered with 1% lidocaine subcutaneously. Limited ultrasound examination of the right breast was then again performed. At the 9:00 position of the right breast approximately 5 cm from the nipple is a mostly well-circumsc ribed focus of decreased echogenicity measuring 7.9 x 4.1 x 5.7 mm, suitable for biopsy. At the 11:00 position of the right breast approximately 3 cm from the nipple was an additional focus of decreased echogenicity measuring 9.5 x 4.5 x 8.0 mm, also suitable for biopsy. A 13G introducer was placed using ultrasound guidance into the abnormality at the 9:00 position of th e right breast, and the inner needle removed. A 14-gauge biopsy device was then used to obtain 3 biopsy specimens under continuous sonographic guid ance. The biopsy device was then removed, and through the introducer a coil marker was placed. The entry site was cleaned and dressed with Steri-Strips. There were no immediate complications. Attention was then turned to the abnormality at the 11:00 position of the right breast. A 13G introducer was placed using ultrasound guidance into the abnormality at the 11:00 position of t he right breast, and the inner needle removed. A 14-gauge biopsy device was then used to obtain 4 biopsy specimens under continuous sonographic guid ance. Of note, these specimens were dense and dark brown in color (rather than white), as one might e xpect from a complex cyst. The biopsy device was then removed, and through the introducer a butterfly marker was placed. The entry site was cleaned and dressed with Steri-Strips. There were no immediate complications. Post biopsy mammography was then performed in both the CC and MLO positions demonstrating both a coil and a butterfly microclip in the upper outer quadrant of the right breast without a significant clayton lesional hematoma. IMPRESSION: 1. Technically successful ultrasound-guided core needle biopsy of a mammographic and sonographic abno rmality at the 9:00 position of the right breast with postbiopsy marker placement. 2. Technically successful ultrasound-guided core needle biopsy of the mammographic and sonographic ab normality at the 11:00 position of the right breast with postbiopsy marker placement Pathology pending Reviewed, dictated and finalized at location A. LY LIVING EDUCATOR IMPRESSION: 1. Technically successful ultrasound-guided core needle biopsy of a mammographi c and sonographic abnormality at the 9:00 position of the right breast with pos tbiopsy marker placement. 2. Technically successful ultrasound-guided core needle biopsy of the mammograp hic and sonographic abnormality at the 11:00 position of the right breast with postbiopsy marker placement Pathology pending IMPRESSION: 1. Technically successful ultrasound-guided core needle biopsy of a mammographi c and sonographic abnormality at the 9:00 position of the right breast with pos tbiopsy marker placement. 2. Technically successful ultrasound-guided core needle biopsy of the mammograp hic and sonographic abnormality at the 11:00 position of the right breast with postbiopsy marker placement Pathology pending
== END 2024-10-18 08:03 | disposition home or self-care (01) ==
PROVIDERS: Visit Provider Obstetrics & Gynecology
DX: N63.11 Unspecified lump in the right breast, upper outer quadrant (principal)
CPT/HCPCS: 19083; 19084; 77065; 88305; A4648

== ENCOUNTER 2025-04-18 08:56 | Outpatient (CLI) | payer BC, SELFPAY ==
--- NOTE | ~2025-04-18 | US_ITS ---
US breast RT limited 04/18/2025 09:15 Indication: Follow-up right breast masses post benign biopsy Procedure: High-resolution Limited ultrasound of the right breast Comparison: Ultrasound dated 09/10/2024 Findings: At 9:00, 5 cm from the nipple there is a small oval cystic mass with internal echoes, likel y representing a tissue marker. This mass measures 10 x 5 x 3 mm and has a benign appearance. A 10-11 :00, 5 cm from the nipple there is a complicated cyst also containing an echogenic focus internally, likely tissue marker measuring 1.3 x 0.5 x 0.3 cm, likely benign. Impression: 1: Probable benign-appearing right breast masses post biopsy. BI-RADS CATEGORY 3-PROBABLY BENIGN FINDING RECOMMENDATION: Six-month follow-up bilateral mammogram and Limited right breast ultrasound recommend ed. Reviewed, dictated and finalized at location [] Impression: 1: Probable benign-appearing right breast masses post biopsy. BI-RADS CATEGORY 3-PROBABLY BENIGN FINDING RECOMMENDATION: Six-month follow-up bilateral mammogram and Limited right breas t ultrasound recommended.
== END 2025-04-18 08:57 | disposition home or self-care (01) ==
LOC: MICIMG 08:57
PROVIDERS: Visit Provider Obstetrics & Gynecology
DX: R92.8 Other abnormal and inconclusive findings on diagnostic imaging of breast (principal)
CPT/HCPCS: 76642

== ENCOUNTER 2025-11-02 08:49 | Outpatient (CLI) | payer BC, SELFPAY ==
--- NOTE | ~2025-11-02 | MM_ITS ---
EXAMINATION: MM diagnostic abdullahi BI w rafia HISTORY: Follow-up biopsy in the right TECHNIQUE: Craniocaudal and mediolateral oblique 3-D tomosynthesis images were obtained and synthetic 2-D images were generated. CAD analysis was submitted and interpreted. COMPARISON: 2023, 2022, and 2021 BREAST PARENCHYMAL COMPOSITION: Dense: The breasts are heterogeneously dense FINDINGS: The biopsy marker is seen in the lateral right breast. No suspicious masses are seen. There are no suspicious calcifications. No unexplained architectural distortion is seen. There are no skin or nipple abnormalities identified. There is no adenopathy seen on the images submitted. IMPRESSION: No mammographic evidence to suggest malignancy is seen. The patient may return to screening mammography as per ACR guidelines. BI-RADS 1 - Negative. Reviewed, dictated and finalized at location B. TOR
== END 2025-11-02 08:50 | disposition home or self-care (01) ==
LOC: MICIMG 08:50
PROVIDERS: Visit Provider Obstetrics & Gynecology
DX: R92.8 Other abnormal and inconclusive findings on diagnostic imaging of breast (principal)
CPT/HCPCS: 77062; 77066; G0279